=== PATIENT | female | born 1955 | race Caucasian/White ===

== ENCOUNTER 2017-10-17 10:00 | Outpatient (CLI) | payer BC ==
[~2017-10-17] VITALS: Ht 170.2 cm; Wt 104.3 kg
[~2017-10-17 10:00] MED LIST: BUPR300T51 PO; LISI10TA2 PO; METH10TA3 PO; NAPR-1070 PO; OMEP20CA12 PO; PRAV40TA2 PO; TEMA15CA PO
== END 2017-10-17 10:19 ==
LOC: PREOP 10:00
PROVIDERS: ATTEND Surgery
DX: Z01.818 Encounter for other preprocedural examination (principal); Z12.11 Encounter for screening for malignant neoplasm of colon

== ENCOUNTER 2017-10-20 07:55 | Day surgery (SDC) | payer BC ==
[~2017-10-20] VITALS: Ht 170.2 cm; Wt 104.3 kg
[2017-10-20] MEDS ORDERED: NS IV 500 ML 500 ML ONE (08:01)
[2017-10-20] MEDS ORDERED: NS IV 500 ML 500 ML IV PRN (08:16)
[2017-10-20 08:27] VITALS: BP 132/84
[2017-10-20] MEDS: MIDAZOLAM 2 MG/2 ML (VERSED) VIAL IVP PRN ×3 (08:39→09:43)
[2017-10-20] MEDS ORDERED: fentaNYL INJECTION 100 MCG/2 ML AMP ONE (09:27)
[2017-10-20] MEDS ORDERED: MIDAZOLAM 2 MG/2 ML (VERSED) VIAL ONE ×3 (09:27)
[2017-10-20] MEDS: fentaNYL INJECTION 100 MCG/2 ML AMP IVP PRN ×2 (09:33→09:40)
--- NOTE | 2017-10-20 09:35 | History & Physicial ---
History of Present Illness History of Present Illness Reason for visit/HPI to undergo screening colonoscopy. No family history of colon cancer Date of Admission 10/20/17 Date Seen by Provider: Oct 20, 2017 Time Seen by Provider: 09:30 I consulted on this patient on 10/20/17 09:29 Attending Physician Lola Godoy MD Admitting Physician Danielle Zapata MD Consult Allergies and Home Medications Allergies Coded Allergies: No Known Drug Allergies (Unverified , 10/17/17) Home Medications Bupropion HCl 300 Mg Tab.er.24h, 300 MG PO DAILY, (Reported) Lisinopril 10 Mg Tablet, 10 MG PO DAILY, (Reported) Methylphenidate HCl 10 Mg Tablet, 10 MG PO DAILY PRN for adhd, (Reported) Naproxen Sodium 550 Mg Tablet, 550 MG PO BID PRN for joint pain, (Reported) Omeprazole 20 Mg Capsule.dr, 20 MG PO DAILY, (Reported) Pravastatin Sodium 40 Mg Tablet, 40 MG PO DAILY PRN, (Reported) Temazepam 15 Mg Capsule, 15 MG PO HS PRN for SLEEP, (Reported) Patient Home Medication List Home Medication List Reviewed: Yes Past Ixslqqi-Xwgdei-Aipeba Hx Patient Social History Marrital Status: Employed/Student: employed Alcohol Use: Denies Use Recreational Drug Use: No Smoking Status: Former Smoker Former Smoker, Quit: Oct 17, 2006 Recent Foreign Travel: No Contact w/other who traveled: No Recent Hopitalizations: No Seasonal Allergies Seasonal Allergies: No Surgeries Yes Bladder Surgery, Gallbladder Respiratory No Cardiovascular Yes Hypertension Musculoskeletal Yes Arthritis Reviewed Nursing Assessment Reviewed/Agree w Nursing PMH: No Constitutional: no symptoms reported EENTM: no symptoms reported Respiratory: no symptoms reported Cardiovascular: no symptoms reported Gastrointestinal: no symptoms reported Genitourinary: no symptoms reported Musculoskeletal: no symptoms reported Skin: no symptoms reported Psychiatric/Neurological: No Symptoms Reported Physical Exam Vital Signs Vital Signs - First Documented 10/20/17 08:27 Temp 98.4 Pulse 78 Resp 18 B/P (MAP) 132/84 (100) Pulse Ox 98 O2 Delivery Room Air Capillary Refill : General Appearance: No Apparent Distress Neck: Normal Inspection Respiratory: Lungs Clear Cardiovascular: Regular Rate, Rhythm Gastrointestinal: Non Tender, Soft Rectal: Deferred Extremity: Normal Inspection Neurologic/Psychiatric: Alert, Oriented x3 Skin: Warm/Dry Assessment/Plan Assessment and Plan lady here to undergo screening colonoscopy. Details of the procedure, iatrogenic complications of perforation, post polypectomy bleeding etc. discussed thoroughly. Willing to proceed. Problems: Admission Diagnosis Admission Status: Other (Outpt Proc) LOLA GODOY MD Oct 20, 2017 9:35 am
--- NOTE | 2017-10-20 09:49 | Conscious Sedation/ASA ---
Conscious Sedation Pre-Proced Time Reviewed: 09:05 ASA Class: 2 Airway Mallampati Classification: ([place] appropriate class) I. II. III, IV Lungs Heart ASA score ASA 1: a normal healthy patient ASA 2: a patient with a mild systemic disease (mid diabetes, controlled hypertension, obesity ASA 3: a patient with a severe systemic disease that limits activity (angina , COPD, prior Myocardial infarction) ASA 4: a patient with an incapacitating disease that is a constant threat to life (CHF, renal failure) ASA 5: a moribund patient not expected to survive 24 hrs. (ruptured aneurysm) ASA 6: a declared brain patient whose organs are being harvested. For emergent operations, add the letter E after the classification Grade 2 Sedation Plan: Discussed options with patient/fam Note The patient is an appropriate candidate to undergo the planned procedure, sedation, and anesthesia. The patient immediately re-assessed prior to indication. LOLA TEJADA MD Oct 20, 2017 9:49 am
--- NOTE | 2017-10-20 09:51 | Endo Procedure Record ---
Endo Procedure Report Date of Procedure Last Colonoscopy: Yes (unsure) Oct 20, 2017 Surgeon (s) LOLA TEJADA MD Post Procedure/Op Diagnosis Diffuse diverticulosis Procedure Performed Colonoscopy to cecum Description of Procedure Anesthesia Type: Conscious Sedation Specimen(s) collected/removed none Description of the Procedure Indication for the procedure: This lady came in for screening colonoscopy. She denied any family history. Informed consent was obtained after reviewing the procedure in detail. Description of the procedure: She was placed in left lateral decubitus position and her vital signs were monitored. Conscious sedation was achieved using Versed and fentanyl. Digital rectal examination was unremarkable. The colonoscope was then introduced into the rectum and advanced all the way up to the cecum. The quality of bowel preparation was excellent. The scope was withdrawn slowly and the mucosa examined in a systematic fashion. Findings: Diffuse diverticulosis. No polyps were found. She tolerated the procedure well and was taken back to the nursing area in a stable condition. Impression: Screening colonoscopy. No polyps. No family history. Recommend repeating in 10 years. Copies To: PIEDAD LOZANO MD, XAVIER M MD Oct 20, 2017 9:51 am
--- NOTE | 2017-10-20 09:54 | Discharge Inst-Simple/Standard ---
Discharge Inst-Standard Discharge Medications New, Converted or Re-Newed RX: Other Patient Instructions/Follow Up Plan of Care/Instructions/FU: Repeat colonoscopy in 10 years Activity as Tolerated: Yes Discharge Diet: No Restrictions LOLA TEJADA MD Oct 20, 2017 9:54 am
[2017-10-20 10:05] VITALS: BP 115/71
[2017-10-20 10:25] VITALS: BP 111/73
[2017-10-20 13:09] VITALS: BP 111/73
== END 2017-10-20 10:30 | disposition home or self-care (01) ==
LOC: ENDO 07:55
PROVIDERS: ATTEND Surgery
DX: Z12.11 Encounter for screening for malignant neoplasm of colon (principal); K57.30 Diverticulosis of large intestine without perforation or abscess without bleeding; I10 Essential (primary) hypertension; M19.91 Primary osteoarthritis, unspecified site; Z79.899 Other long term (current) drug therapy; Z87.891 Personal history of nicotine dependence